=== PATIENT | male | born 1985 | race Caucasian/White ===

== ENCOUNTER 2020-03-19 14:12 | Emergency (ER) | payer SELFPAY ==
[~2020-03-19] VITALS: Ht 152.4 cm; Wt 68.0 kg
[2020-03-19 14:18] VITALS: BP 104/70
[2020-03-19] MEDS ORDERED: HYDROCODONE/ACETAMINOPHEN 5/325MG TABLET PO ONE (14:45)
[2020-03-19] MEDS ORDERED: LIDOCAINE HCL 1% 20ML VIAL (Pyxis) INJ INFIL ONE (14:45)
[2020-03-19] MEDS ORDERED: TETANUS, DIPHTHERIA, PERTUSSIS VAC/PF 0.5ML (>7YR OLD) IM ONE (15:00)
== END 2020-03-19 16:10 | disposition left against medical advice (07) ==
LOC: ER 14:27
DX: S61.111A Laceration without foreign body of right thumb with damage to nail, initial encounter (principal); W26.0XXA Contact with knife, initial encounter; Y93.89 Activity, other specified; Y92.89 Other specified places as the place of occurrence of the external cause; Y99.8 Other external cause status; E11.9 Type 2 diabetes mellitus without complications; I10 Essential (primary) hypertension
CPT/HCPCS: 12002; 90471; 90715; 99283; J3490; Z7610

== ENCOUNTER 2022-10-25 17:09 | Emergency (ER) | payer SELFPAY ==
[~2022-10-25] VITALS: Ht 160 cm; Wt 73.0 kg
[2022-10-25 17:11] VITALS: BP 140/81; PULSE 121; RESP 18; TEMP 98.4; O2SAT 98
[2022-10-25] MEDS ORDERED: ACETAMINOPHEN 325MG TABLET PO STA (17:39)
[2022-10-25] MEDS ORDERED: SODIUM CHLORIDE 0.9% 1,000 ML IV ONE (17:45)
[2022-10-25 17:59] LABS: BASOPHILS % 1.5 % (0.0-2.0); EOSINOPHILS % 0.7 % (0.0-5.0); HEMATOCRIT. 38.3 % (42.0-52.0); HEMOGLOBIN. 12.7 g/dL (14.0-18.0); MEAN CORPUSCULAR HEMOGLOBIN 31.9 pg (28.0-32.0); MEAN CORPUSCULAR VOLUME 96.4 fL (80.0-94.0); MEAN PLATELET VOLUME 6.9 fl (7.4-10.4); MONOCYTES % 7.2 % (2.0-8.0); NEUTROPHILS % 49.6 % (40.0-76.0); PLATELET 330 x1000/uL (130-400); RED BLOOD CELL COUNT 3.97 mill/uL (4.7-6.1); RED CELL DISTRIBUTION WIDTH 15.7 % (11.6-14.6)
[2022-10-25 18:05] LABS: CHLORIDE 107 mEq/L (98-107)
[2022-10-25 18:16] LABS: ETHANOL BLOOD 312 mg/dL (-10)
== END 2022-10-25 18:58 | disposition left against medical advice (07) ==
LOC: ER 17:09
DX: F10.129 Alcohol abuse with intoxication, unspecified (principal); Y90.8 Blood alcohol level of 240 mg/100 ml or more; E11.9 Type 2 diabetes mellitus without complications; I10 Essential (primary) hypertension
CPT/HCPCS: 80053; 80320; 85025; 36415; 73030; 99284; J7030; G0480

== ENCOUNTER 2022-11-16 14:35 | Inpatient (IN) | payer MEDICAID ==
[~2022-11-16] VITALS: Ht 157.5 cm; Wt 64.9 kg
[2022-11-16] MEDS ORDERED: ACETAMINOPHEN 325MG TABLET PO ONE (15:30)
[2022-11-16] MEDS ORDERED: IBUPROFEN 600MG TABLET PO ONE (15:30)
[2022-11-16] MEDS ORDERED: CYCLOBENZAPRINE 10MG TABLET PO ONE (17:15)
[2022-11-16] MEDS ORDERED: ONDANSETRON HCL 4MG/2ML INJ IV STA (21:31)
[2022-11-16] MEDS ORDERED: MORPHINE SULFATE 4 MG/ML CPJ (NOT FOR IM USE) IV STA (21:31)
[2022-11-16] MEDS ORDERED: SODIUM CHLORIDE 0.9% 1,000 ML IV ONE (21:45)
[2022-11-16 22:02] LABS: BASOPHILS % 1.1 % (0.0-2.0); EOSINOPHILS % 0.9 % (0.0-5.0); HEMATOCRIT. 38.3 % (42.0-52.0); HEMOGLOBIN. 13.3 g/dL (14.0-18.0); LYMPHOCYTES % 39.2 % (20.0-50.0); MEAN CORPUSCULAR HEMOGLOBIN 31.9 pg (28.0-32.0); MEAN CORPUSCULAR VOLUME 92.1 fL (80.0-94.0); MONOCYTES % 8.1 % (2.0-8.0); NEUTROPHILS % 50.7 % (40.0-76.0); PLATELET 349 x1000/uL (130-400); RED BLOOD CELL COUNT 4.16 mill/uL (4.7-6.1); RED CELL DISTRIBUTION WIDTH 15.3 % (11.6-14.6)
[2022-11-16 22:09] LABS: CHLORIDE 107 mEq/L (98-107)
[2022-11-16 22:14] LABS: INR 1.1; PARTIAL THROMBOPLASTIN TIME 25.3 sec (23.4-31.0); PROTHROMBIN TIME 12.1 sec (9.6-11.0)
[2022-11-16 22:17] LABS: ETHANOL BLOOD 177 mg/dL (-10)
[2022-11-16 23:03] LABS: *AMPHETAMINES SCREEN URINE NEGATIVE (NEGATIVE); *BARBITURATES SCREEN URINE NEGATIVE (NEGATIVE); *BENZODIAZEPINES SCREEN URINE NEGATIVE (NEGATIVE); *COCAINE SCREEN URINE NEGATIVE (NEGATIVE); CANNABINOID URINE SCREEN NEGATIVE (NEGATIVE); METHADONE URINE SCREEN NEGATIVE (NEGATIVE); OPIATES URINE SCREEN NEGATIVE (NEGATIVE); PHENCYCLIDINE URINE SCREEN NEGATIVE (NEGATIVE)
[2022-11-17] MEDS ORDERED: DEXTROSE 50% WATER 50ML SYRINGE IV PRN (02:30)
[2022-11-17] MEDS: HYDROCODONE/ACETAMINOPHEN 10/325MG TABLET PO PRN ×2 (02:44→07:44)
[2022-11-17 04:36] VITALS: BP 138/98; PULSE 78; RESP 18; TEMP 97.5
[2022-11-17] MEDS: BLOOD SUGAR DIAGNOSTIC STRIP TEST SCH ×4 (07:44→20:40)
[2022-11-17 08:00] VITALS: BP 150/98; PULSE 97; RESP 19; TEMP 97.5
[2022-11-17] MEDS: METFORMIN HCL 500MG TABLET PO SCH ×2 (08:47→17:55)
[2022-11-17] MEDS: LOSARTAN POTASSIUM 50 MG TABLET PO SCH (08:47)
[2022-11-17] MEDS ORDERED: ENOXAPARIN 30MG/0.3ML SYR SUBCUT SCH (09:00)
[2022-11-17] MEDS ORDERED: DIPHENHYDRAMINE 25MG CAPSULE PO PRN (11:30)
[2022-11-17] MEDS: KETOROLAC 30MG/ML VIAL IV PRN ×2 (11:43→17:55)
[2022-11-17 12:00] VITALS: BP 147/98; PULSE 91; RESP 19; TEMP 98.1
[2022-11-17] MEDS ORDERED: LORAZEPAM 2MG/ML CPJ IV PRN (13:45)
[2022-11-17 16:00] VITALS: BP 128/92; PULSE 79; RESP 19; TEMP 99
[2022-11-17 20:00] VITALS: BP 143/92; PULSE 77; RESP 18; TEMP 97.7
[2022-11-18] VITALS: BP 132/87; PULSE 80; RESP 18; TEMP 97.7
[2022-11-18] MEDS: HYDROCODONE/ACETAMINOPHEN 10/325MG TABLET PO PRN (01:15)
[2022-11-18 04:00] VITALS: BP 141/90; PULSE 67; RESP 20; TEMP 98.1
[2022-11-18] MEDS: KETOROLAC 30MG/ML VIAL IV PRN ×2 (06:17→13:41)
[2022-11-18] MEDS: BLOOD SUGAR DIAGNOSTIC STRIP TEST SCH ×4 (07:51→21:00)
[2022-11-18 08:00] VITALS: BP 151/104; PULSE 95; RESP 20; TEMP 98.1
[2022-11-18] MEDS: ENOXAPARIN 40MG/0.4ML SYR SUBCUT SCH (08:30)
[2022-11-18] MEDS: LOSARTAN POTASSIUM 50 MG TABLET PO SCH (08:30)
[2022-11-18] MEDS: METFORMIN HCL 500MG TABLET PO SCH ×2 (08:30→18:38)
[2022-11-18 12:00] VITALS: BP 155/108; PULSE 88; RESP 20; TEMP 98.6
[2022-11-18] MEDS ORDERED: NALOXONE HCL 0.4MG/ML VIAL IV PRN (15:15)
[2022-11-18 16:00] VITALS: BP 140/94; PULSE 95; RESP 17; TEMP 100
[2022-11-18 20:00] VITALS: BP 142/100; PULSE 92; RESP 18; TEMP 98.5
[2022-11-19] VITALS: BP 138/103; PULSE 66; RESP 20; TEMP 97.8
[2022-11-19] MEDS: KETOROLAC 30MG/ML VIAL IV PRN ×2 (00:58→21:33)
[2022-11-19 04:00] VITALS: BP 133/98; PULSE 72; RESP 20; TEMP 98.4
[2022-11-19] MEDS: HYDROCODONE/ACETAMINOPHEN 10/325MG TABLET PO PRN ×3 (06:46→17:40)
[2022-11-19] MEDS: BLOOD SUGAR DIAGNOSTIC STRIP TEST SCH ×4 (07:20→21:00)
[2022-11-19 08:00] VITALS: BP 149/111; PULSE 78; RESP 20; TEMP 97.7
[2022-11-19] MEDS: LOSARTAN POTASSIUM 50 MG TABLET PO SCH ×2 (10:14→17:39)
[2022-11-19] MEDS: METFORMIN HCL 500MG TABLET PO SCH ×2 (10:14→17:38)
[2022-11-19] MEDS: ENOXAPARIN 40MG/0.4ML SYR SUBCUT SCH (10:14)
[2022-11-19 12:00] VITALS: BP 149/95; PULSE 84; RESP 19; TEMP 99.3
[2022-11-19 16:00] VITALS: BP 133/91; PULSE 80; RESP 18; TEMP 99.3
[2022-11-19 20:00] VITALS: BP 140/92; PULSE 73; RESP 18; TEMP 98.4
[2022-11-20] VITALS: BP 143/95; PULSE 76; RESP 18; TEMP 98.2
[2022-11-20 04:00] VITALS: BP 140/90; PULSE 77; RESP 20; TEMP 99
[2022-11-20] MEDS: BLOOD SUGAR DIAGNOSTIC STRIP TEST SCH ×4 (06:51→21:18)
[2022-11-20] MEDS: METFORMIN HCL 500MG TABLET PO SCH ×2 (07:50→17:58)
[2022-11-20 08:00] VITALS: BP 130/93; PULSE 87; RESP 19; TEMP 97.7
[2022-11-20] MEDS: ENOXAPARIN 40MG/0.4ML SYR SUBCUT SCH (10:47)
[2022-11-20] MEDS: LOSARTAN POTASSIUM 50 MG TABLET PO SCH ×2 (10:47→17:58)
[2022-11-20] MEDS: KETOROLAC 30MG/ML VIAL IV PRN (10:47)
[2022-11-20 12:00] VITALS: BP 124/83; PULSE 98; RESP 19; TEMP 97.9
[2022-11-20] MEDS ORDERED: METHOCARBAMOL 500MG TABLET PO NR (14:15)
[2022-11-20] MEDS ORDERED: CYCLOBENZAPRINE 10MG TABLET PO NR (14:30)
[2022-11-20 16:00] VITALS: BP 143/94; PULSE 108; RESP 18; TEMP 99.7
[2022-11-20 20:00] VITALS: BP 156/88; PULSE 69; RESP 18; TEMP 99.9
[2022-11-20] MEDS ORDERED: ACETAMINOPHEN 325MG TABLET PO PRN (21:30)
[2022-11-20] MEDS ORDERED: CLONIDINE 0.1MG TABLET PO PRN (21:30)
[2022-11-21] VITALS: BP 154/90; PULSE 88; RESP 18; TEMP 99
[2022-11-21 00:49] LABS: HEMATOCRIT 40.6 % (42.0-52.0); HEMOGLOBIN 13.9 g/dL (14.0-18.0); MEAN CORPUSCULAR HEMOGLOBIN 31.7 pg (28.0-32.0); MEAN CORPUSCULAR VOLUME 92.8 fL (80.0-94.0); PLATELET 313 x1000/uL (130-400); RED BLOOD CELL COUNT 4.37 mill/uL (4.7-6.1); RED CELL DISTRIBUTION WIDTH 14.9 % (11.6-14.6)
[2022-11-21 00:50] LABS: CHLORIDE 103 mEq/L (98-107)
[2022-11-21 04:00] VITALS: BP 132/89; PULSE 78; RESP 18; TEMP 98.9
[2022-11-21 07:10] VITALS: RESP 18
[2022-11-21] MEDS: HYDROCODONE/ACETAMINOPHEN 10/325MG TABLET PO PRN ×2 (07:10→11:27)
[2022-11-21] MEDS: BLOOD SUGAR DIAGNOSTIC STRIP TEST SCH ×2 (07:20→12:55)
[2022-11-21] MEDS: ENOXAPARIN 40MG/0.4ML SYR SUBCUT SCH (08:15)
[2022-11-21] MEDS: METFORMIN HCL 500MG TABLET PO SCH (08:15)
[2022-11-21] MEDS: LOSARTAN POTASSIUM 50 MG TABLET PO SCH (08:15)
[2022-11-21] MEDS ORDERED: HYDR-4001 MT (11:38)
[2022-11-21 13:18] VITALS: BP 138/95; PULSE 105; TEMP 99.9; O2SAT 99
== END 2022-11-21 14:33 | disposition home or self-care (01) | DRG 347 ==
LOC: ER 14:37 → MICUSO 22:16 → 6EST 11-17 02:11
PROVIDERS: ADMIT Internal Medicine; ATTEND Internal Medicine
DX: M54.50 Low back pain, unspecified (principal); E11.9 Type 2 diabetes mellitus without complications; F10.129 Alcohol abuse with intoxication, unspecified; I10 Essential (primary) hypertension; Y90.6 Blood alcohol level of 120-199 mg/100 ml
CPT/HCPCS: 36415; 71045; 72131; 72192; 80048; 80053; 80305; 80320; 82962; 83036; 85025; 85027; 86850; 86900; 93005; 97162; 97530; 99285; J1650; J1885; J2060; J2270; J2405; J7030; Q0163; G0480